=== PATIENT | female | born 1975 ===

== ENCOUNTER 2022-07-19 05:14 | Day surgery (SDC) | payer OTHER ==
[~2022-07-19] VITALS: Ht 157.5 cm; Wt 65.8 kg
[~2022-07-19 05:14] MED LIST: CRESTOR10 MG PO; CYMBALTA60 MG PO
== END 2022-07-19 12:20 | disposition home or self-care (01) ==
LOC: CIR.AMB 05:14
PROVIDERS: ATTEND Obstetrics & Gynecology
DX: N84.0 Polyp of corpus uteri (principal); N72 Inflammatory disease of cervix uteri; N93.8 Other specified abnormal uterine and vaginal bleeding; Z20.822 Contact with and (suspected) exposure to COVID-19